=== PATIENT | female | born 2000 | race Caucasian/White ===

== ENCOUNTER 2022-12-21 08:03 | Outpatient (CLI) | payer BC | END 2022-12-21 08:04 | disposition home or self-care (01) | LOC: SCSMRI 08:03 | PROVIDERS: ATTEND Orthopaedic Surgery | DX: M23.92 Unspecified internal derangement of left knee (principal); S83.512A Sprain of anterior cruciate ligament of left knee, initial encounter; S80.02XA Contusion of left knee, initial encounter; S83.282A Other tear of lateral meniscus, current injury, left knee, initial encounter; R60.0 Localized edema ==

== ENCOUNTER 2023-02-04 05:59 | Observation (INO) | payer BC ==
[2023-02-03 08:39] VITALS: BMI 19.7
[2023-02-04] MEDS ORDERED: fentaNYL PF 100 MCG/2 ML SYRINGE ONE (06:40)
[2023-02-04] MEDS ORDERED: Midazolam HCl 2 mg/2 ml Vial ONE (07:08)
[2023-02-04] MEDS ORDERED: Bupivacaine PF 0.5% 30 ML VIAL ONE (07:09)
[2023-02-04] MEDS ORDERED: Ondansetron PF 4 MG/2 ML Vial ONE (07:12)
[2023-02-04] MEDS ORDERED: Lidocaine 1% PF 5 ML VIAL ONE (07:12)
[2023-02-04] MEDS ORDERED: Bupivacaine HCl 0.5%/Epinephrine 1:200,000/PF 30 ml Vial ONE (07:12)
[2023-02-04] MEDS ORDERED: PHENYLEPHRINE-NS 100 MCG/ML 10 ML SYRINGE ONE (07:12)
[2023-02-04] MEDS ORDERED: Ketorolac Tromethamine 30 MG/ML VIAL ONE (07:12)
[2023-02-04] MEDS ORDERED: PROPOFOL 200 MG/20 ML VIAL ONE (07:12)
[2023-02-04] MEDS ORDERED: Sodium Chloride 0.9% 100 ML ONE (07:18)
[2023-02-04] MEDS ORDERED: CEFAZOLIN 2 GM VIAL ONE (07:18)
[2023-02-04] MEDS ORDERED: Scopolamine 1.5 mg/72 hour Patch ONE (07:26)
[2023-02-04] MEDS ORDERED: Acetaminophen 500 MG TAB PO PRN (07:50)
[2023-02-04] MEDS ORDERED: Milk Of Magnesia 30 ML UDCUP PO PRN (07:50)
[2023-02-04] MEDS ORDERED: Bisacodyl 10 MG SUPP PR PRN (07:50)
[2023-02-04] MEDS ORDERED: HYDROcodone/Acetaminophen 7.5/325 mg Tablet PO PRN (07:50)
[2023-02-04] MEDS ORDERED: traMADol HCl 50 MG TAB PO PRN ×3 (07:50→08:00)
[2023-02-04] MEDS ORDERED: Ondansetron PF 4 MG/2 ML Vial IVP PRN ×2 (07:50→08:00)
[2023-02-04] MEDS ORDERED: diphenhydrAMINE 50 MG CAP PO PRN (07:50)
[2023-02-04] MEDS ORDERED: Methocarbamol 500 MG TAB PO PRN (07:50)
[2023-02-04] MEDS ORDERED: fentaNYL 50 mcg/mL 1 mL Vial SLOW IVP PRN (07:51)
[2023-02-04] MEDS ORDERED: Zolpidem Tartrate 5 MG TAB PO PRN (08:00)
[2023-02-04] MEDS ORDERED: Promethazine HCl 25 MG/ML VIAL IM PRN ×2 (08:00→09:34)
[2023-02-04] MEDS ORDERED: Ropivacaine 0.2% 550 ML 550 ML NERVE BLCK SCH (08:00)
[2023-02-04] MEDS ORDERED: Phenylephrine 10 MG/ML VIAL ONE (08:57)
[2023-02-04] MEDS ORDERED: Meperidine HCl/PF 25 MG/ML VIAL ONE (09:31)
[2023-02-04] MEDS ORDERED: Ondansetron HCl/PF 4 MG/2 ML Vial IVP PRN (09:34)
[2023-02-04 09:55] LABS: Calcium 8.6 mg/dL (7.8-10.44)
[2023-02-04] MEDS ORDERED: Promethazine HCl 25 MG/ML VIAL ONE (09:58)
[2023-02-04] MEDS ORDERED: Fentanyl 250 MCG/5 ML VIAL ONE (10:12)
[2023-02-04] MEDS ORDERED: HYDROmorphone 0.5 MG/0.5 ML SYRINGE ONE (11:01)
[2023-02-04] MEDS ORDERED: Ketorolac Tromethamine 30 MG/ML VIAL IVP SCH (12:00)
[2023-02-04] MEDS: Dextrose 5 %-0.45 % NaCl 1,000 ML IV SCH ×2 (14:18→18:13)
[2023-02-04] MEDS: Ketorolac Tromethamine 30 MG/ML VIAL IVP SCH ×2 (14:19→17:04)
[2023-02-04] MEDS: Famotidine 20 MG TAB PO SCH ×2 (14:19→20:39)
[2023-02-04] MEDS: CEFAZOLIN 2 GM in Sodium Chloride 0.9% 100 ML IVPB SCH (14:20)
[2023-02-05] MEDS: CEFAZOLIN 2 GM in Sodium Chloride 0.9% 100 ML IVPB SCH (00:09)
[2023-02-05] MEDS: Ketorolac Tromethamine 30 MG/ML VIAL IVP SCH ×3 (00:10→13:21)
[2023-02-05] MEDS: Dextrose 5 %-0.45 % NaCl 1,000 ML IV SCH ×2 (05:28→13:22)
[2023-02-05] MEDS: Famotidine 20 MG TAB PO SCH (11:48)
[2023-02-05 12:15] VITALS: BP 98/60; TEMP 98.3
== END 2023-02-05 13:30 | disposition home or self-care (01) ==
LOC: SDC 05:59 → SJJU 07:50
PROVIDERS: ADMIT Orthopaedic Surgery; ATTEND Orthopaedic Surgery
PROC: 0MRP47Z Replacement of Left Knee Bursa and Ligament with Autologous Tissue Substitute, Percutaneous Endoscopic Approach (ICD-10-PCS; principal; 2023-02-04)
DX: S83.512A Sprain of anterior cruciate ligament of left knee, initial encounter (principal); K21.9 Gastro-esophageal reflux disease without esophagitis; Z88.5 Allergy status to narcotic agent; X58.XXXA Exposure to other specified factors, initial encounter; Y93.23 Activity, snow (alpine) (downhill) skiing, snowboarding, sledding, tobogganing and snow tubing
CPT/HCPCS: 82306; 82310; A4306; C1713; J1170; J1885; J2175; J2250; J2370; J2405; J2550; J2704; J2795; J3010; J3490; J7042; S0020